=== PATIENT | male | born 1970 | race Caucasian/White ===

== ENCOUNTER 2023-12-06 19:54 | Emergency (ER) | payer SELFPAY ==
[2023-12-06] MEDS: Lidocaine 1% 10 ML MDV INJECT ONE (21:36)
[2023-12-06] MEDS: Diphtheria,Pertussis(Acell),Tetanus Vaccine 0.5 ML Syringe IM ONE (21:37)
== END 2023-12-06 22:29 | disposition home or self-care (01) ==
LOC: MW.ED 19:54
DX: S01.112A Laceration without foreign body of left eyelid and periocular area, initial encounter (principal); Z23 Encounter for immunization; W22.8XXA Striking against or struck by other objects, initial encounter
CPT/HCPCS: 12011; 90471; 99282-25; J3490

== ENCOUNTER 2023-12-13 20:24 | Emergency (ER) | payer BC | END 2023-12-13 20:44 | disposition left against medical advice (07) | LOC: MW.ED 20:24 | DX: S01.112D Laceration without foreign body of left eyelid and periocular area, subsequent encounter (principal); Z48.02 Encounter for removal of sutures | CPT/HCPCS: 99281 ==